=== PATIENT | female | born 1975 | race American Indian/Alaskan Native ===

== ENCOUNTER 2018-08-17 13:58 | Emergency (ER) | payer OTHER ==
[2018-08-17 14:04] VITALS: BMI 29.9
--- NOTE | 2018-08-17 14:19 | ED PDOC ---
Arrival/HPI - General Chief Complaint: Chest Pain Time Seen by Provider: 08/17/18 13:59 - History of Present Illness Narrative History of Present Illness (Text): 08/17/18 14:14 43 f with hx asthma and htn presents to the ED with intermittent anterior chest pain for the past week. patient states the pain is intermittent, localized to chest wall, no radiation of pain, no associated dizziness, no nausea, no dyspnea. patient states she lifts heavy objects at work which may have exacerbated her pain approx one week ago. No attempted analgesics at home. Past Medical History - Provider Review Nursing Documentation Reviewed: Yes - Infectious Disease Hx of Infectious Diseases: None - Reproductive Currently : Unknown - Cardiac Hx Hypertension: Yes - Pulmonary Hx Asthma: Yes - Psychiatric Hx Substance Use: No - Surgical History Hx Tubal Ligation: Yes - Anesthesia Hx Anesthesia: No Hx Anesthesia Reactions: No Family/Social History - Physician Review Nursing Documentation Reviewed: Yes Family/Social History: No Known Family HX Smoking Status: Never Smoked Hx Alcohol Use: Yes Hx Substance Use: No Allergies/Home Meds Allergies/Adverse Reactions: Allergies shellfish derived Allergy (Verified 12/28/17 11:26) SWELLING RASH/ITCHING Home Medications: Home Meds Medication Instructions Recorded Confirmed Valsartan/Hydrochlorothiazide 1 tab PO DAILY 09/08/17 12/28/17 [Diovan Hct 160-25 mg Tablet] Albuterol Sulfate [Proventil Hfa] 1 puff IH PRN PRN 12/28/17 12/28/17 Review of Systems - Physician Review All systems were reviewed & negative as marked: Yes - Review of Systems Cardiovascular: Chest Pain. absent: RUTH Gastrointestinal: absent: Nausea Neurological: absent: Dizziness Physical Exam - Physical Exam Narrative Physical Exam (Text): 08/17/18 14:20 Gen: VS reviewed, alert, well developed, well nourished, nontoxic, mild distress Eye: EOMI, PERRL Neck: no JVD, supple, no adenopathy CV: regular rate, regular rhythm, no rubs,no murmur, S1, S2 Pulm: no distress, clear to auscultation, no wheeze, no rhonchi, breath sounds equal, no rales Chest: mild tenderness of the right anterior chest wall just next to the sternum Abd: soft, nontender, no guarding, no rebound, no rigidity Ext: no edema Skin: good color, no rash, no cyanosis Psych: responds appropriately to questions, normal affect Neuro: oriented x3, CN2-12 intact grossly, motor intact, sensation intact Vital Signs Temp Pulse Resp BP Pulse Ox 08/17/18 13:58 98.1 F 97 H 18 134/79 99 Medical Decision Making ED Course and Treatment: 08/17/18 14:21 low risk chest pain, will workup for ACS, normal EKg, ongoing pain for 1 week, if troponin negative will discharge home. PERC rule negative, no significant clinical suspicion for aortic dissection 08/17/18 17:15 pain resolved, patient appears well, patient reminds me that she had a negative stress test a year ago. 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 clinical presentation consistent with chest wall pain. - EKG Interpretation EKG Interpretation (Text): 08/17/18 14:46 1409: nsr at 94 bpm, nml qrs, nml axis, no acute sttw abn Interpreted by ED Physician: Yes Disposition/Present on Arrival - Present on Arrival Any Indicators Present on Arrival: No History of DVT/PE: No History of Uncontrolled Diabetes: No Urinary Catheter: No History of Decub. Ulcer: No History Surgical Site Infection Following: None - Disposition Have Diagnosis and Disposition been Completed?: Yes Diagnosis: Chest wall pain Disposition: HOME/ ROUTINE Disposition Time: 17:16 Patient Plan: Discharge Patient Problems: Current Active Problems Problem Status Onset Chest wall pain Acute Condition: STABLE Discharge Instructions (ExitCare): Chest Pain (ED) Additional Instructions: return for any new or worsening symptoms. follow up with your exhibition designer as soon as possible-call sunday to make an appointment. Forms: [employer] (Lithuanian), WORK NOTE
[2018-08-17 15:04] LABS: BASO # 0.04 K/mm3 (0.0-2.0); BASO % 0.5 % (0.0-3.0); EOS # 0.1 (0.0-0.7); EOS % 1.6 % (1.5-5.0); HEMOGLOBIN 10.7 g/dL (12.0-16.0); LYMPH % 39.1 % (22.0-35.0); MEAN CELL VOLUME 80.7 fl (80.0-105.0); MEAN CORPUSCULAR HEMOGLOBIN 25.8 pg (25.0-35.0); MEAN CORPUSCULAR HGB CONC 31.9 g/dl (31.0-37.0); MEAN PLATELET VOLUME 10.2 fl (7.0-11.0); MONO # 0.6 (0.1-0.6); MONO % 7.5 % (1.0-6.0); RBC 4.15 10^6/uL (3.5-6.1); RED CELL DISTRIBUTION WIDTH 15.6 % (11.5-14.5); WHITE BLOOD COUNT 7.6 10^3/uL (4.5-11.0)
[2018-08-17 15:13] LABS: ALB/GLOB RATIO 1.2 (1.1-1.8); ALBUMIN 4.3 g/dL (3.0-4.8); ALT/SGPT 26 U/L (7-56); AST/SGOT 29 U/L (14-36); BLOOD UREA NITROGEN 12 mg/dL (7-21); CALCIUM 9.2 mg/dL (8.4-10.5); GFR NON-AFRICAN AMERICAN > 60; HDL CHOLESTEROL 37 mg/dL (29-60)
[2018-08-17 15:24] LABS: LDL CHOLESTEROL 98 mg/dL (0-129); TROPONIN I < 0.01 ng/mL
[2018-08-17 17:20] VITALS: BP 123/77; PULSE 78; RESP 19; TEMP 98; O2SAT 97
--- NOTE | 2018-08-17 18:02 | RAD ---
Date of service: 08/17/2018 HISTORY: chest pain COMPARISON: No prior. TECHNIQUE: Chest PA and lateral FINDINGS: LUNGS: No active pulmonary disease. PLEURA: No significant pleural effusion identified. No pneumothorax apparent. CARDIOVASCULAR: No aortic atherosclerotic calcification present. Normal cardiac size. No pulmonary vascular congestion. OSSEOUS STRUCTURES: No significant abnormalities. VISUALIZED UPPER ABDOMEN: Normal. OTHER FINDINGS: None. IMPRESSION: No active disease.
--- NOTE | 2018-08-17 21:23 | CARD ---
APPROVED REPORT Date of service: 08/17/2018 EKG Measurement Heart [id number] CT [id number] [id number] <Conclusion> Normal sinus rhythm Possible Left atrial enlargement Borderline ECG
== END 2018-08-17 17:40 | disposition home or self-care (01) ==
LOC: ED 13:58
DX: R07.89 Other chest pain (principal); I10 Essential (primary) hypertension